=== PATIENT | female | born 1985 | race Caucasian/White ===

== ENCOUNTER 2016-10-26 20:48 | Emergency (ER) | payer OTHER ==
[2016-10-26 21:05] VITALS: BP 176/129; PULSE 130; TEMP 98.8; BMI 38.7
[2016-10-26] MEDS ORDERED: SULFAMETHOXAZOLE/TRIMETHOPRIM 800MG/160MG D.S. TABLET PO ONE (21:33)
[2016-10-26] MEDS ORDERED: IBUPROFEN 400 MG TABLET (FP) PO ONE ×2 (21:33→21:40)
--- NOTE | 2016-10-26 21:33 | PDOC ---
[id number] No Limitations - History of Present Illness Initial Comments: 10/26/16 21:49 The patient is a 31 year old female with significant past medical history of asthma who presents to the ED with 7 days of painful abscess. Patient reports she developed an abscess to the right side of the lower thoracic region that worsened. States she applied warm soaks to the area. Denies h/o of diabetes. Prior to presentation, she noted little drainage coming from the area, however the abscess is still painful. The patient denies fever, chills, cough, SOB, chest pain, and palpitations. The patient denies abdominal pain, nausea, vomiting, and diarrhea. Allergies: NKDA Social History: Occasional cigarette smoker. No alcohol or drug use reported. Past Surgical History: None reported PCP: Dr. Arnulfo Meyers <Teri Franklin - Last Filed: 10/26/16 21:49> - General History Source: Patient <Ajith Andrews - Last Filed: 10/27/16 19:35> - General Chief Complaint: Abscess Boil Stated Complaint: PAIN Time Seen by Provider: 10/26/16 21:26 Past History <Teri Franklin - Last Filed: 10/26/16 21:49> - Past Medical History Asthma: Yes Psychiatric Problems: Yes (Anxiety) - Reproductive History (#): 0 Para: 0 Cervical CA: Yes Dysfunctional Uterine Bleeding: Yes Ectopic : Yes Endometrial CA: Yes Polycystic Ovaries: Yes Therapeutic (s) & number: No Tubal Ligation: Yes Spontaneous : 0 - Psycho/Social/Smoking Cessation Hx Anxiety: No Suicidal Ideation: No Smoking Status: Yes Smoking History: Current every day smoker Have you smoked in the past 12 months: Yes Number of Cigarettes Smoked Daily: 5 Cigars Per Day: 0 Information on smoking cessation initiated: No Hx Alcohol Use: No Drug/Substance Use Hx: No Substance Use Type: None <Ajith Andrews - Last Filed: 10/27/16 19:35> - Past Medical History Allergies/Adverse Reactions: Allergies Allergy/AdvReac Type Severity Reaction Status Date / Time No Known Allergies Allergy Verified 10/26/16 21:02 Home Medications: Ambulatory Orders Ibuprofen 800 mg PO TID #30 tablet 10/26/16 Oxycodone HCl/Acetaminophen [Percocet 5-325 mg Tablet] 1 - 2 tab PO Q6H #20 tablet MDD 4 10/26/16 Sulfamethoxazole/Trimethoprim [Bactrim *Ds*] 1 tab PO BID #20 tablet 10/26/16 Review of Systems - Review of Systems Able to Perform ROS?: Yes Comments:: 10/26/16 21:49 CONSTITUTIONAL: Absent: fever, no chills, no fatigue EYES: Absent: visual changes ENT: Absent: ear pain, no sore throat CARDIOVASCULAR: Absent: chest pain, no palpitations RESPIRATORY: Absent: cough, no SOB GI: Absent: abdominal pain, no nausea, no vomiting, no constipation, no diarrhea GENITOURINARY: Absent: dysuria, no frequency, no hematuria MUSCULOSKELETAL: Absent: back pain, no arthralgia, no myalgia SKIN: +abscess to the right side of the lower thoracic region NEURO: Absent: headache <Teri Franklin - Last Filed: 10/26/16 21:49> *Physical Exam - Vital Signs Last Vital Signs Temp Pulse Resp BP Pulse Ox 98.8 F 130 H 18 176/129 98 10/26/16 21:02 10/26/16 21:02 10/26/16 21:02 10/26/16 21:02 10/26/16 21:02 - Physical Exam Comments: 10/26/16 21:50 GENERAL: Well-appearing, well-nourished. No apparent distress. HEENT: Normocephalic, atraumatic. PERRL, EOM intact. CARDIOVASCULAR: Normal S1, S2. Regular rate and rhythm. PULMONARY: Clear to auscultation bilaterally. ABDOMEN: Soft, non-distended, non-tender. EXTREMITIES: Normal ROM in all four extremities. No gross deformities. SKIN: Warm, dry. Right side lower thoracic region 6 cm abscess, erythematous, firm, nonfluctuant, no visible drainage at this time. NEUROLOGICAL: No focal neurological deficits. <Teri Franklin - Last Filed: 10/26/16 21:49> - Vital Signs Last Vital Signs Temp Pulse Resp BP Pulse Ox 98.8 F 130 H 18 176/129 98 10/26/16 21:02 10/26/16 21:02 10/26/16 21:02 10/26/16 21:02 10/26/16 21:02 <Ajith Andrews - Last Filed: 10/27/16 19:35> ED Treatment Course - Medications Given in the ED: ED Medications Discontinued Medications Generic Name Dose Route Start Last Admin Trade Name Chasity PRN Reason Stop Dose Admin Ibuprofen 800 mg 10/26/16 21:33 10/26/16 21:45 Motrin - PO 10/26/16 21:34 800 mg ONCE ONE Administration Trimethoprim/Sulfamethoxazole 1 each 10/26/16 21:33 10/26/16 21:45 Bactrim Ds - PO 10/26/16 21:34 1 each ONCE ONE Administration <Teri Franklin - Last Filed: 10/26/16 21:49> Medical Decision Making - Medical Decision Making 10/27/16 19:34 Dr. Andrews: The scribe's documentation has been prepared under my direction and personally reviewed by me in its entirery. I confirm that the note above accurately reflects all work, treatment, procedures, and medical decision making performed by me. <Ajith Andrews - Last Filed: 10/27/16 19:35> *DC/Admit/Observation/Transfer - Attestations Scribe Attestion: 10/26/16 21:50 Documentation prepared by Teri Franklin, acting as certified medical asst for Ajith Andrews MD <Teri Franklin - Last Filed: 10/26/16 21:49> - Discharge Dispostion Admit: No <Ajith Andrews - Last Filed: 10/27/16 19:35> Diagnosis at time of Disposition: Abscess - Discharge Dispostion Disposition: HOME Condition at time of disposition: Stable - Prescriptions Prescriptions: Sulfamethoxazole/Trimethoprim [Bactrim *Ds*] 1 tab PO BID #20 tablet Ibuprofen 800 mg PO TID #30 tablet Oxycodone HCl/Acetaminophen [Percocet 5-325 mg Tablet] 1 - 2 tab PO Q6H #20 tablet MDD 4 - Referrals Referrals: Arnulfo Meyers [Primary Care Provider] - - Patient Instructions Printed Discharge Instructions: DI for Skin Abscess Additional Instructions: continue with warm soaks. Take medication as directed. Return when abscess is softer and ready to drain.
[2016-10-26] MEDS ORDERED: SULFAMETHOXAZOLE/TRIMETHOPRIM 800MG/160MG D.S. TABLET ONE (21:40)
== END 2016-10-26 22:00 | disposition home or self-care (01) ==
LOC: JER 20:48
DX: L02.212 Cutaneous abscess of back [any part, except buttock and flank] (principal)
CPT/HCPCS: 99281-25

== ENCOUNTER 2016-10-28 21:57 | Emergency (ER) | payer OTHER ==
[2016-10-28 22:13] VITALS: BP 160/112; PULSE 67; TEMP 99.5; BMI 38.7
--- NOTE | 2016-10-28 22:22 | PDOC ---
History of Present Illness - General Chief Complaint: Abscess Boil Stated Complaint: CYST Time Seen by Provider: 10/28/16 22:01 - History of Present Illness Initial Comments: This otherwise healthy 31-year-old woman presents with progressive pain/ swelling in area of right-sided back abscess. Patient was seen at [facility] 2 days ago with one-week history of swelling and pain in the area. She was started on Bactrim DS BID which she has taken since then. She states that pain and swelling has worsened without significant relief and inflammation. No history of fevers/chills, nausea/vomiting. No previous history of abscesses or resistant organism colonization/infection. No known history of immunocompromise. On no medications No known allergies Past History - Past Medical History Allergies/Adverse Reactions: Allergies Allergy/AdvReac Type Severity Reaction Status Date / Time No Known Allergies Allergy Verified 10/26/16 21:02 Home Medications: Ambulatory Orders Ibuprofen 800 mg PO TID #30 tablet 10/26/16 Sulfamethoxazole/Trimethoprim [Bactrim *Ds*] 1 tab PO BID #20 tablet 10/26/16 Clindamycin [Cleocin -] 600 mg PO Q6H #56 capsule 10/29/16 Asthma: Yes Psychiatric Problems: Yes (Anxiety) - Reproductive History (#): 0 Para: 0 Cervical CA: Yes Dysfunctional Uterine Bleeding: Yes Ectopic : Yes Endometrial CA: Yes Polycystic Ovaries: Yes Therapeutic (s) & number: No Tubal Ligation: Yes Spontaneous : 0 - Psycho/Social/Smoking Cessation Hx Anxiety: No Suicidal Ideation: No Smoking Status: Yes Smoking History: Current every day smoker Have you smoked in the past 12 months: Yes Number of Cigarettes Smoked Daily: 5 Cigars Per Day: 0 Information on smoking cessation initiated: Yes 'Breaking Loose' booklet given: 10/28/16 Hx Alcohol Use: No Drug/Substance Use Hx: No Substance Use Type: None Review of Systems - Review of Systems Able to Perform ROS?: Yes Comments:: 12 point review of systems is negative except for what is noted in the history of present illness *Physical Exam - Vital Signs Last Vital Signs Temp Pulse Resp BP Pulse Ox 99.5 F 67 16 160/112 95 10/28/16 22:03 10/28/16 22:03 10/28/16 22:03 10/28/16 22:03 10/28/16 22:03 - Physical Exam Comments: GENERAL: Awake, alert, and fully oriented, in no acute distress HEAD: No signs of trauma EYES: PERRLA, EOMI, sclera anicteric, conjunctiva clear ENT: Auricles normal inspection, hearing grossly normal, nares patent, oropharynx clear without exudates. Moist mucosa NECK: Normal ROM, supple, no lymphadenopathy, JVD, or masses LUNGS: Breath sounds clear and equal. No wheezes, and no crackles HEART: Regular rate and rhythm, normal S1 and S2, no murmurs, rubs or gallops noted BACK: 8 cm oval, erythematous, generally indurated, tender mass right mid lower thoracic back Central pore with small amount of purulent discharge surrounded by 2 cm area of fluctuance; faintly erythematous 15 cm nontender, nonfluctuant area extending to right flank 20 cm by 6 cm faintly erythematous, nonedematous, nonfluctuant, nontender area extending outward from mid sacral area ABDOMEN: Soft, nontender, normoactive bowel sounds. No guarding, no rebound. No masses EXTREMITIES: Normal range of motion, no edema. No clubbing or cyanosis. No cords, erythema, or tenderness NEUROLOGICAL: Cranial nerves II through XII grossly intact. Normal speech, normal gait Procedures - Incision and Drainage I&D Site: Right: Other (lower thoracic back) Betadine cleansed: No (Hibiclens) Anesthesia: 1% Lidocaine Volume(ml): 3 Blade Size: 11 Attempts: 1 Iodinated Packin in Plain Packing: Yes Complications: none Dressing: Yes (dry,sterile gauze) Progress: Area of abscess cleansed with Hibiclens/ethanol solution and sterilely draped. 3 mL of 1% lidocaine infiltrated into the area for local anesthesia. 2.5 cm full-thickness incision made with #11 blade. Copious purulent discharge was expressed from the wound and sent for culture and sensitivity. Loculations within the cavity broken up bluntly and wound irrigated with 50 mL of sterile normal saline. 1 inch plain packing placed into the wound. Sterile dry gauze placed. Patient tolerated procedure well ED Treatment Course - LABORATORY CBC & Chemistry Diagram: 10/28/16 23:15 10/28/16 23:15 Medical Decision Making - Medical Decision Making This 31-year-old woman with no significant past medical history no previous history of abscesses/cellulitis presents with abscess and cellulitis of the right lower thoracic back area. Patient has been treated for it 2 days with Bactrim DS twice a day without apparent improvement. No fever noted but patient has progressive pain and swelling in the area. Exam as noted: Patient has tender indurated area with central fluctuance. Of note, there are faintly erythematous areas extending to the right flank and also distant from the abscess, faintly erythematous, non-tender or indurated area of the sacral region. Procedure as noted above for incision and drainage of the abscess. Copious purulent drainage; sample sent for culture and sensitivity. vancomycin 1 g IV given Because of the presence of cellulitis and progressive nature of the infection, CBC/chemistry profile was obtained.PGU/UA also obtained Laboratory evaluation notable for white blood cell count of 23,200 Admission for IV antibiotics warranted given the leukocytosis, extended areas of cellulitis and progressive nature of the infection. Patient refused admission, signing out AGAINST MEDICAL ADVICE Patient advised to stop Bactrim and begin clindamycin 600 mg 4 times a day. Prescription will be sent to her pharmacy. She should return to the emergency room if she has fevers/worsening pain/worsening area of redness. She should follow-up with her doctor or be seen here for wound check within the next 3 days. Packing should be removed in 48 hours. *DC/Admit/Observation/Transfer Diagnosis at time of Disposition: Cellulitis and abscess of trunk - Discharge Dispostion Disposition: AGAINST MEDICAL ADVICE Condition at time of disposition: Stable - Prescriptions Prescriptions: Clindamycin [Cleocin -] 600 mg PO Q6H #56 capsule - Referrals Referrals: STAFF,NOT ON [Primary Care Provider] - - Patient Instructions Printed Discharge Instructions: DI for Incision and Drainage of a Skin Abscess , DI for Cellulitis -- Adult Additional Instructions: Take clindamycin as prescribed Packing should be removed in 48 hours then Band-Aid as needed See your doctor or return here for a wound check on Tuesday, November 01 Return to ER if you have high fever/more severe pain/increase in redness
[2016-10-28 22:53] LABS: URINE APPEARANCE Clear; URINE BILIRUBIN Negative (NEGATIVE); URINE BLOOD Trace-lysed (NEGATIVE); URINE GLUCOSE (UA) Negative (NEGATIVE); URINE KETONE Trace (NEGATIVE); URINE LEUK ESTERASE Negative (NEGATIVE); URINE NITRITE Negative (NEGATIVE); URINE UROBILINOGEN 2.0 E.U/dl (0.2-1.0)
[2016-10-28 23:00] LABS: URINE PROTEIN 2+ (NEGATIVE)
[2016-10-28 23:01] LABS: URINE BACTERIA FEW /hpf (NEGATIVE); URINE RBC 0-2 /hpf (0-3)
[2016-10-28] MEDS ORDERED: VANCOMYCIN 1,000 MG in DEXTROSE 5%-WATER - 250 ML IVPB ONE (23:07)
[2016-10-28] MEDS ORDERED: VANCOMYCIN 1,000 MG VIAL (RESTRICTED TO ID ONLY) ONE (23:20)
[2016-10-28 23:26] LABS: MCH 29.9 pg (25.7-33.7); MCHC 35.4 g/dl (32.0-36.0); MEAN CELL VOLUME 84.6 fl (80-96); MEAN PLT VOLUME 8.9 fl (7.5-11.1); PLATELET COUNT 264 K/MM3 (134-434); RDW 11.3 % (11.6-15.6); WHITE BLOOD COUNT 23.2 K/mm3 (4.0-10.8)
[2016-10-28 23:41] LABS: ALBUMIN 3.8 g/dl (3.5-5.0); ALK PHOS 59 U/L (32-92); ANION GAP 9 (8-16); BILIRUBIN,TOTAL 0.5 mg/dl (0.2-1.0); CALCIUM 8.7 mg/dl (8.4-10.2); CO2 25 mmol/L (22-28); CREATININE 0.7 mg/dl (0.6-1.3); GLUCOSE,RANDOM 165 mg/dl (74-106); SGOT/AST 18 U/L (10-42); SGPT/ALT 20 U/L (10-40); TOT PROT 6.7 g/dl (6.4-8.3)
[2016-10-28 23:45] LABS: URINE COLOR YELLOW
== END 2016-10-29 00:59 | disposition left against medical advice (07) ==
LOC: FER 21:57
PROC: 0H96XZZ Drainage of Back Skin, External Approach (ICD-10-PCS; principal; 2016-10-28)
PROC: 3E02329 Introduction of Other Anti-infective into Muscle, Percutaneous Approach (ICD-10-PCS; 2016-10-28)
DX: L02.219 Cutaneous abscess of trunk, unspecified (principal); L03.319 Cellulitis of trunk, unspecified; J45.909 Unspecified asthma, uncomplicated; F17.210 Nicotine dependence, cigarettes, uncomplicated; F41.9 Anxiety disorder, unspecified
CPT/HCPCS: 36415; 80053; 81003; 81015; 84703; 85025; 87070; 87186; 87205; 99282-25

== ENCOUNTER 2016-10-30 17:12 | Emergency (ER) | payer OTHER ==
--- NOTE | 2016-10-30 17:14 | PDOC ---
Attending Attestation - Resident Resident Name: LopezRodo - ED Attending Attestation I have performed the following: I have examined & evaluated the patient, The case was reviewed & discussed with the resident, I agree w/resident's findings & plan, Exceptions are as noted - HPI HPI: 10/30/16 17:13 The pt is a 31 year old female who presents to the emergency department for an evaluation of an abscess that was incised, drained and packed on 08/30. At that time, hospitalization was recommended but she refused admission against medical advice. She has been compliant with Clindamycin. She denies fever, chills. 10/30/16 17:15 10/30/16 17:16 - Physicial Exam PE: 10/30/16 17:16 She is well appearing and in no acute distress Grain stain of wound culture was MRSA 10/30/16 17:37 10/30/16 17:41 - Medical Decision Making 10/30/16 17:17 She is well appearing and in no acute distress From prior documentation and per her friend, the area is significantly better There is still some erythema around the incision site There is no purulence or fluctuence She has no evidence of sepsis or deep tissuer infection 10/30/16 17:41 Clinical impression: Healing abscess, s/p incision and drainage Resolving cellulitis I discussed the physical exam findings and final diagnoses with the patient. I answered all of the patient's questions. The patient was satisfied with the care received and felt comfortable with the discharge plan and treatment plan. The patient will call their primary care physician within 24 hours to arrange follow-up and will return to the Emergency Department with any new, persistent or worsening symptoms.
[2016-10-30 17:22] VITALS: BP 116/88; PULSE 100; TEMP 98.7; BMI 37.3
--- NOTE | 2016-10-30 17:30 | PDOC ---
History of Present Illness - General Chief Complaint: Revisit,Wound Recheck Stated Complaint: WOUND CHECK Time Seen by Provider: 10/30/16 17:13 History Source: Patient Exam Limitations: No Limitations - History of Present Illness Initial Comments: 31 yo F with h/o spinal abscess s/p drainage and packing presented to the ED for packing removal. She said she was seen at [facility] ED with spinal abscess and received vancomycin 1 g IV but insisted on sign out AMA and taking oral antibiotics as outpatient. Patient has been on clindamycin 600mg Q6H since and denies fever and chills. Past History - Past Medical History Allergies/Adverse Reactions: Allergies Allergy/AdvReac Type Severity Reaction Status Date / Time No Known Allergies Allergy Verified 10/30/16 17:13 Home Medications: Ambulatory Orders Ibuprofen 800 mg PO TID #30 tablet 10/26/16 Clindamycin [Cleocin -] 600 mg PO Q6H #56 capsule 10/29/16 Asthma: Yes Psychiatric Problems: Yes (Anxiety) - Reproductive History (#): 0 Para: 0 Cervical CA: Yes Dysfunctional Uterine Bleeding: Yes Ectopic : Yes Endometrial CA: Yes Polycystic Ovaries: Yes Therapeutic (s) & number: No Tubal Ligation: Yes Spontaneous : 0 - Psycho/Social/Smoking Cessation Hx Anxiety: No Suicidal Ideation: No Smoking Status: Yes Smoking History: Current every day smoker Have you smoked in the past 12 months: Yes Number of Cigarettes Smoked Daily: 5 Cigars Per Day: 0 Information on smoking cessation initiated: Yes 'Breaking Loose' booklet given: 10/28/16 Hx Alcohol Use: No (DENIES) Drug/Substance Use Hx: No (DENIES) Substance Use Type: None Review of Systems - Review of Systems Constitutional: No: Chills, Fever Respiratory: No: Cough, Shortness of Breath Cardiac (ROS): No: Chest Pain Integumentary: Yes: Lesions, Rash *Physical Exam - Vital Signs Last Vital Signs Temp Pulse Resp BP Pulse Ox 98.7 F 100 H 18 116/88 98 10/30/16 17:15 10/30/16 17:15 10/30/16 17:15 10/30/16 17:15 10/30/16 17:15 - Physical Exam General Appearance: No: Apparent Distress Respiratory/Chest: positive: Lungs Clear, Normal Breath Sounds Cardiovascular: positive: Regular Rhythm, Regular Rate, S1, S2. negative: Murmur Integumentary: positive: Erythema, Other (2 cm open wound without sign of drainage. no fluctuance.) Medical Decision Making - Medical Decision Making 10/30/16 17:42 Packing removed. Wound looks better compare to prior admission. Educated the patient on wound care. Will discharge the patient. *DC/Admit/Observation/Transfer Diagnosis at time of Disposition: Abscess - Discharge Dispostion Disposition: HOME Condition at time of disposition: Good Admit: No - Patient Instructions Printed Discharge Instructions: How to Care for a Surgical Wound Additional Instructions: Please use normal bathtub water to clean the wound, keep lint out of the wound and use aquafor for quicker wound healing. If you develop fever, chills, purulent discharge from the abscess, do return to the ER for further wound care.
== END 2016-10-30 17:50 | disposition home or self-care (01) ==
LOC: FER 17:12
DX: Z48.01 Encounter for change or removal of surgical wound dressing (principal); F17.210 Nicotine dependence, cigarettes, uncomplicated; J45.909 Unspecified asthma, uncomplicated; F41.9 Anxiety disorder, unspecified
CPT/HCPCS: 99281-25

== ENCOUNTER 2017-02-22 17:53 | Emergency (ER) | payer OTHER ==
--- NOTE | 2017-02-22 18:00 | PDOC ---
History of Present Illness <Gaurav Rae - Last Filed: 02/22/17 18:54> - General History Source: Patient Exam Limitations: No Limitations - History of Present Illness Initial Comments: 02/22/17 18:44 31 y/o F with no significant PMHx presents to the ED with multiple abscesses. Patient reports similar abscesses before, but denies having multiple at one time. She reports that she drained the right forearm, left axilla, and LUQ abscesses. She reports associated pain at all sites. She presented to the ED for an abscess in October with similar symptoms. She denies shaving or waxing the areas where the abscesses formed. She denies fever, chills. SHx: current smoker <Mary De Jesus - Last Filed: 02/22/17 19:09> <Shreyas Poole - Last Filed: 02/24/17 12:21> - General Chief Complaint: Wound Stated Complaint: ABCESS Time Seen by Provider: 02/22/17 17:55 Past History - Past Medical History Asthma: Yes Psychiatric Problems: Yes (Anxiety) - Reproductive History (#): 0 Para: 0 Cervical CA: Yes Dysfunctional Uterine Bleeding: Yes Ectopic : Yes Endometrial CA: Yes Polycystic Ovaries: Yes Therapeutic (s) & number: No Tubal Ligation: Yes Spontaneous : 0 - Psycho/Social/Smoking Cessation Hx Anxiety: No Suicidal Ideation: No Smoking Status: Yes Smoking History: Current every day smoker Have you smoked in the past 12 months: Yes Number of Cigarettes Smoked Daily: 5 Cigars Per Day: 0 'Breaking Loose' booklet given: 10/28/16 Hx Alcohol Use: No (DENIES) Drug/Substance Use Hx: No (DENIES) Substance Use Type: None <Gaurav Rae - Last Filed: 02/22/17 18:54> <Mary De Jesus - Last Filed: 02/22/17 19:09> <Shreyas Poole - Last Filed: 02/24/17 12:21> - Past Medical History Allergies/Adverse Reactions: Allergies Allergy/AdvReac Type Severity Reaction Status Date / Time No Known Allergies Allergy Verified 02/22/17 17:54 Home Medications: Ambulatory Orders Oxycodone HCl/Acetaminophen [Percocet 5-325 mg Tablet] 1 - 2 tab PO TID PRN #10 tab MDD 6 tabs 02/22/17 Sulfamethoxazole/Trimethoprim [Bactrim DS -] 2 tab PO BID #40 tablet 02/22/17 Review of Systems - Review of Systems Constitutional: No: Chills, Fever Integumentary: Yes: See HPI All Other Systems: Reviewed and Negative <Gaurav Rae - Last Filed: 02/22/17 18:54> *Physical Exam - Vital Signs Last Vital Signs Temp Pulse Resp BP Pulse Ox 98.3 F 97 H 20 151/91 99 02/22/17 17:53 02/22/17 17:53 02/22/17 17:53 02/22/17 17:53 02/22/17 17:53 - Physical Exam Comments: 02/22/17 18:44 GENERAL: The patient is awake, alert, and fully oriented, in no acute distress. HEAD: Normal with no signs of trauma. EYES: Pupils equal, round and reactive to light, extraocular movements intact, sclera anicteric, conjunctiva clear. LUNGS: Breath sounds equal, clear to auscultation bilaterally. No wheeze/ crackles. HEART: Regular rate at 72 bpm and rhythm, normal S1 and S2 without murmur or rub. EXTREMITIES: Normal range of motion, no edema. NEUROLOGICAL: Normal speech, normal gait. PSYCH: Normal mood, normal affect. SKIN: 3 cm abscess on right forearm with central raised induration but no palpable fluctuance. 2 cm area of induration, with ~3 cm of erythema, actively draining purulence and blood on LUQ. 5 mm of resolving abscess, no induration, no fluctuance at left axilla. 5 mm of resolving abscesses, no induration, no fluctuance x 3 in left shoulder area. Right mid abdomen has 5 cm area of induration with small 5 mm of fluctuance centrally, no active drainage, 12 cm area of erythema, no evidence of deep abdominal wall or intraperitoneal expansion. Right suprapubic has 4 cm area of induration without fluctuance, no drainage, 5 cm of cellulitis. <Mary De Jesus - Last Filed: 02/22/17 19:09> - Vital Signs Last Vital Signs Temp Pulse Resp BP Pulse Ox 98.3 F 97 H 20 151/91 99 02/22/17 17:53 02/22/17 17:53 02/22/17 17:53 02/22/17 17:53 02/22/17 17:53 <Shreyas Poole - Last Filed: 02/24/17 12:21> ED Treatment Course - ADDITIONAL ORDERS Additional order review: 02/22/17 18:29 Gram Stain - Final Abscess - Medications Given in the ED: ED Medications Discontinued Medications Generic Name Dose Route Start Last Admin Trade Name Chasity PRN Reason Stop Dose Admin Oxycodone/Acetaminophen 1 combo 02/22/17 19:06 02/22/17 19:09 Percocet 5/325 - PO 02/22/17 19:07 Not Given ONCE ONE Trimethoprim/Sulfamethoxazole 2 each 02/22/17 18:27 02/22/17 19:08 Bactrim Ds - PO 02/22/17 18:28 2 each ONCE ONE Administration <Shreyas Poole - Last Filed: 02/24/17 12:21> Medical Decision Making - Medical Decision Making 02/22/17 18:56 31-year-old female with 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 Reports exposure to an individual that had MRSA, otherwise no travel or known contacts, denies any fevers or chills or systemic symptoms. Denies any IV drug use. Afebrile. Morbidly obese, well-appearing Exam as noted with scattered cellulitis/induration/abscess. Fluctuance noted in the left upper quadrant which is spontaneously draining, and in the right lower quadrant abscesses. There is late stage induration without fluctuance in the right forearm and suprapubic region, there is early cellulitis in the area of the left shoulder/axilla. PROCEDURE NOTE INCISION AND DRAINAGE PROCEDURE: Right middle abdominal wall abscess The skin was prepped with Betadine solution. 2% lidocaine was injected subcutaneously for local anesthesia. Incision of the center of the abscess was performed with a #11 blade. Purulent material was expressed from the incision. A curved clamp was used to break up loculations within the abscess. Further purulent material was expressed from the incision. Gauze packing was placed within the wound. A clean, dry, sterile dressing was placed. Patient was advised regarding wound care and followup for packing removal. INCISION AND DRAINAGE PROCEDURE: Left upper quadrant abdominal wall abscess The skin was prepped with Betadine solution. 2% lidocaine was injected subcutaneously for local anesthesia. Incision of the center of the abscess was performed with a #11 blade. Mostly sanguinous material was expressed from the incision, some residual purulence. The abscess was very superficial so no breakup of loculations or gauze packing was indicated. A wound culture was sent. A clean, dry, sterile dressing was placed. Patient was advised regarding wound care and followup for packing removal. Given patient is immunocompetent without evidence of sepsis or bacteremia, we' ll trial with a course of Bactrim based on sensitivities from prior MRSA culture. First dose given in ED, patient should return in 48-72 hours for packing changes and wound checks of other abscesses. Strict return criteria regarding expansion of the cellulitis and need for IV antibiotics, understands and will comply. <Gaurav Rae - Last Filed: 02/22/17 18:54> - Medical Decision Making 02/24/17 12:20 [email or web address] Preliminary Report, MRSA, Covered with Bactrim DS at initial encounter. <Shreyas Poole - Last Filed: 02/24/17 12:21> *DC/Admit/Observation/Transfer <Gaurav Rae - Last Filed: 02/22/17 18:54> - Attestations Scribe Attestion: 02/22/17 18:45 Documentation prepared by Mary De Jesus, acting as certified medical technician for Gaurav Rea MD. <Mary De Jesus - Last Filed: 02/22/17 19:09> <Shreyas Poole - Last Filed: 02/24/17 12:21> Diagnosis at time of Disposition: Abscess - Discharge Dispostion Disposition: HOME Condition at time of disposition: Improved - Prescriptions Prescriptions: Sulfamethoxazole/Trimethoprim [Bactrim DS -] 2 tab PO BID #40 tablet Oxycodone HCl/Acetaminophen [Percocet 5-325 mg Tablet] 1 - 2 tab PO TID PRN #10 tab MDD 6 tabs PRN Reason: Pain - Patient Instructions Printed Discharge Instructions: DI for Methicillin-Resistant Staph Infection ( MRSA), DI for Skin Abscess Additional Instructions: You have several infections in the skin, some of them are abscesses which were drained here. In the past, you were diagnosed with MRSA, and this is likely the cause again. Maintain the packing and dressing for the R abdominal lesion. No packing was needed for the Left abdominal lesion. Warm soaks to the R forearm and lower abdominal lesions. Take ibuprofen 800mg every 8 hours as needed for moderate pain. Take percocet as prescribed as needed for severe pain. Take Bactrim as prescribed as antibiotic for 10 days. REturn to the ER on Tuesday morning for wound check and packing change. Return sooner for any new or concerning symptoms, including increasing redness, fever/ chills, intolerable pain, severe swelling or discoloration.
[2017-02-22] MEDS ORDERED: SULFAMETHOXAZOLE/TRIMETHOPRIM 800MG/160MG D.S. TABLET PO ONE (18:27)
[2017-02-22 18:29] VITALS: BP 151/91; PULSE 97; TEMP 98.3; BMI 38.4
[2017-02-22] MEDS ORDERED: SULFAMETHOXAZOLE/TRIMETHOPRIM 800MG/160MG D.S. TABLET ONE (19:03)
== END 2017-02-22 19:12 | disposition home or self-care (01) ==
LOC: FER 17:53
PROC: 0H97XZZ Drainage of Abdomen Skin, External Approach (ICD-10-PCS; principal; 2017-02-22)
DX: L02.211 Cutaneous abscess of abdominal wall (principal); F17.210 Nicotine dependence, cigarettes, uncomplicated
CPT/HCPCS: 10060; 87070; 87186; 87205; 99281-25

== ENCOUNTER 2017-02-24 21:13 | Emergency (ER) | payer OTHER ==
[2017-02-24 21:31] VITALS: BP 151/101; PULSE 102; TEMP 98.5; BMI 38.4
--- NOTE | 2017-02-24 21:38 | PDOC ---
History of Present Illness - History of Present Illness Initial Comments: 02/24/17 21:40 The patient is a 31 year old female with no significant PMHx who returns to the ED 2 days s/p being discharged after I&D of two abscesses on her abdomen with complaint of two new painful She localizes her new abscesses to one on her right forearm and one to her central lower abdomen despite starting Bactrim yesterday. She reports her new abscesses are painful and warm, but denies drainage from either of them. She reports the new abscess on her right forearm does appear to be getting better even though it is painful. She states the abscess on her lower abdomen hurts when it rubs against her pants and has it covered with gauze to alleviate some of the pressure from her pants. She denies fever, nausea, or vomiting. She states she also feels she is developing other abscesses on her abdomen aside from the ones that were recently drained. She denies chest pain, shortness of breath, headache and dizziness. She denies chills, diarrhea and constipation. She denies dysuria, frequency, urgency and hematuria. Allergies: NKDA <Ching Cates - Last Filed: 02/24/17 21:49> <Yoko Gardner - Last Filed: 02/24/17 22:04> - General Chief Complaint: Revisit,Wound Recheck Stated Complaint: PACKING REMOVAL Time Seen by Provider: 02/24/17 21:19 Past History <Ching Cates - Last Filed: 02/24/17 21:49> - Past Medical History Asthma: Yes Psychiatric Problems: Yes (Anxiety) - Reproductive History (#): 0 Para: 0 Cervical CA: Yes Dysfunctional Uterine Bleeding: Yes Ectopic : Yes Endometrial CA: Yes Polycystic Ovaries: Yes Therapeutic (s) & number: No Tubal Ligation: Yes Spontaneous : 0 - Psycho/Social/Smoking Cessation Hx Anxiety: No Suicidal Ideation: No Smoking Status: Yes Smoking History: Current every day smoker Have you smoked in the past 12 months: Yes Number of Cigarettes Smoked Daily: 5 Cigars Per Day: 0 'Breaking Loose' booklet given: 10/28/16 Hx Alcohol Use: No (DENIES) Drug/Substance Use Hx: No (DENIES) Substance Use Type: None <Yoko Gardner - Last Filed: 02/24/17 22:04> - Past Medical History Allergies/Adverse Reactions: Allergies Allergy/AdvReac Type Severity Reaction Status Date / Time No Known Allergies Allergy Verified 02/22/17 17:54 Home Medications: Ambulatory Orders Oxycodone HCl/Acetaminophen [Percocet 5-325 mg Tablet] 1 - 2 tab PO TID PRN #10 tab MDD 6 tabs 02/22/17 Sulfamethoxazole/Trimethoprim [Bactrim DS -] 2 tab PO BID #40 tablet 02/22/17 Review of Systems - Review of Systems Able to Perform ROS?: Yes Comments:: 02/24/17 21:40 GENERAL/CONSTITUTIONAL: No fever or chills. No weakness. HEAD, EYES, EARS, NOSE AND THROAT: No change in vision. No ear pain or discharge. No sore throat. CARDIOVASCULAR: No chest pain or shortness of breath. RESPIRATORY: No cough, wheezing, or hemoptysis. GASTROINTESTINAL: No nausea, vomiting, diarrhea or constipation. GENITOURINARY: No dysuria, frequency, or change in urination. MUSCULOSKELETAL: No joint or muscle swelling or pain. No neck or back pain. SKIN: (+) painful abscesses to forearm and lower abdomen. NEUROLOGIC: No headache, vertigo, loss of consciousness, or change in strength/ sensation. ENDOCRINE: No increased thirst. No abnormal weight change. HEMATOLOGIC/LYMPHATIC: No anemia, easy bleeding, or history of blood clots. ALLERGIC/IMMUNOLOGIC: No hives or skin allergy. <Ching Cates - Last Filed: 02/24/17 21:49> *Physical Exam - Vital Signs Last Vital Signs Temp Pulse Resp BP Pulse Ox 98.5 F 102 H 16 151/101 99 02/24/17 21:19 02/24/17 21:19 02/24/17 21:19 02/24/17 21:19 02/24/17 21:19 - Physical Exam Comments: 02/24/17 21:40 GENERAL: Awake, alert, and fully oriented, in no acute distress HEAD: No signs of trauma EXTREMITIES: (+) 2cm abscess on right forearm. Normal range of motion, no edema. No clubbing or cyanosis. No cords NEUROLOGICAL: Cranial nerves II through XII grossly intact. Normal speech, normal gait SKIN: (+) There is a 2cm area of induration redness and tenderness on the right forearm, a nontender/nonindurated/nondraining abscess on left upper quadrant without packing, a 1cm area of redness and induration with packing removed from RUQ abscess with minimal purulent drainage, 1cm area of induration and tenderness without fluctuance or drainage to suprapubic region. <Ching Cates - Last Filed: 02/24/17 21:49> Medical Decision Making - Medical Decision Making 02/24/17 22:01 Pt presents to the ED for packing removal and wound check of multiple abscesses I and D'd on 02/22. Patient is afebrile and has multiple areas of redness and induration that she reports are persistent but seem to be improving stince starting on bactrim. Packing removed. Patient was concerned about two spots that she felt might require drainage. I examined them with ultrasound and saw no fluid pocket. Patient instructed to continue bactrim and to return to the ED for fever or worsening redness. I also instructed her to return if she does not experience significant improvement within two days. <Yoko Gardner - Last Filed: 02/24/17 22:04> *DC/Admit/Observation/Transfer <Ching Cates - Last Filed: 02/24/17 21:49> - Discharge Dispostion Admit: No <Yoko Gardner - Last Filed: 02/24/17 22:04> Diagnosis at time of Disposition: Abscess - Discharge Dispostion Disposition: HOME Condition at time of disposition: Stable - Patient Instructions Printed Discharge Instructions: DI for Skin Abscess Additional Instructions: Return to the ED for fever, nausea and vomiting, spreading redness or pain. Use warm compresses on the affected area of your arm and belly. Return to the ED if the redness has not improved after two days of antibiotics. Follow up with your primary care doctor. Continue to take the bactrim until it is all gone.
== END 2017-02-24 21:55 | disposition home or self-care (01) ==
LOC: FER 21:13
DX: Z48.01 Encounter for change or removal of surgical wound dressing (principal)
CPT/HCPCS: 99281-25

== ENCOUNTER 2017-09-23 18:06 | Emergency (ER) | payer SELFPAY ==
[2017-09-23 18:23] VITALS: BP 151/94; PULSE 110; TEMP 98.3; BMI 39.1
[2017-09-23] MEDS ORDERED: NAPROXEN 500 MG TABLET (FP) PO ONE (18:50)
--- NOTE | 2017-09-23 18:52 | PDOC ---
History of Present Illness - General Chief Complaint: Pain Stated Complaint: RIGHT SIDE OF CHEST PAIN WITH RESPIRATION Time Seen by Provider: 09/23/17 18:13 History Source: Patient Exam Limitations: No Limitations Past History - Past Medical History Allergies/Adverse Reactions: Allergies Allergy/AdvReac Type Severity Reaction Status Date / Time No Known Allergies Allergy Verified 09/23/17 18:07 Home Medications: Ambulatory Orders Cyclobenzaprine HCl [Flexeril -] 10 mg PO TID PRN #10 tablet 09/23/17 Naproxen 500 mg PO BID PRN #15 tablet 09/23/17 Asthma: Yes COPD: No Psychiatric Problems: Yes (Anxiety) - Reproductive History (#): 0 Para: 0 Cervical CA: Yes Dysfunctional Uterine Bleeding: Yes Ectopic : Yes Endometrial CA: Yes Polycystic Ovaries: Yes Therapeutic (s) & number: No Tubal Ligation: Yes Spontaneous : 0 - Suicide/Smoking/Psychosocial Hx Smoking Status: Yes Smoking History: Current every day smoker Have you smoked in the past 12 months: Yes Number of Cigarettes Smoked Daily: 5 Cigars Per Day: 0 Information on smoking cessation initiated: Yes 'Breaking Loose' booklet given: 10/28/16 Hx Alcohol Use: Yes (SOCIAL) Drug/Substance Use Hx: No Substance Use Type: Alcohol Review of Systems - Review of Systems Able to Perform ROS?: Yes Comments:: 09/24/17 08:39 GENERAL/CONSTITUTIONAL: No fever, weakness. HEAD, EYES, EARS, NOSE AND THROAT: No change in vision. No ear pain or discharge. No sore throat. CARDIOVASCULAR: No chest pain or shortness of breath. BACK: Right upper back pain RESPIRATORY: No cough, wheezing, or hemoptysis. GASTROINTESTINAL: No abdominal pain, nausea, vomiting, diarrhea, or decreased PO intolerance. GENITOURINARY: No dysuria, frequency, or change in urination. MUSCULOSKELETAL: No joint or muscle swelling or pain. No neck or back pain. SKIN: No rash NEUROLOGIC: No headache, vertigo, loss of consciousness, or change in strength/ sensation. ENDOCRINE: No increased thirst. No abnormal weight change. HEMATOLOGIC/LYMPHATIC: No anemia, easy bleeding, or history of blood clots. ALLERGIC/IMMUNOLOGIC: No hives or skin allergy. *Physical Exam - Vital Signs Last Vital Signs Temp Pulse Resp BP Pulse Ox 98.3 F 110 H 20 151/94 100 09/23/17 18:07 09/23/17 18:07 09/23/17 18:07 09/23/17 18:07 09/23/17 18:07 - Physical Exam Comments: 09/24/17 08:39 GENERAL: Awake, alert, and fully oriented, in no acute distress. HEAD: No signs of trauma EYES: PERRLA, EOMI, sclera anicteric, conjunctiva clear ENT: Auricles normal inspection, hearing grossly normal, nares patent NECK: Normal ROM, supple, no lymphadenopathy, JVD, or masses LUNGS: Breath sounds equal, clear to auscultation bilaterally. No wheezes, and no crackles HEART: Regular rate and rhythm, normal S1 and S2, no murmurs, rubs or gallops BACK: Reproducible right sided back pain and spasm radiating to right chest. EXTREMITIES: Normal range of motion, no edema. No clubbing or cyanosis. No cords, erythema, or tenderness NEUROLOGICAL: Cranial nerves II through XII grossly intact. Normal speech, normal gait SKIN: Warm, Dry, normal turgor, no rashes or lesions noted. Medical Decision Making - Medical Decision Making 09/23/17 18:52 A portion of this note was documented by scribe services under my direction. I have reviewed the details of the note, within reason, and agree with the documentation with the following case summary and management plan written by me. Patient treated in the ED. Nursing notes are reviewed and incorporated into the medical decision-making. Vital signs reviewed. Peripheral IV access obtained by the nurse, laboratory studies are drawn and sent, reviewed and interpreted by myself. 32-year-old female with history of obesity presents with reproducible right upper back pain radiating to the right side chest. Patient reports that she woke up with the pain. Denies shortness of breath or cough or fevers. States that turning and twisting of the upper extremity as well as palpation reproduces the pain. Denies fevers or chills. The patient has muscle spasm. We'll treat with NSAIDs and muscle relaxants. I have no concerns for acute coronary syndrome or pulmonary embolism or other acute cardiac pulmonary disease at this time. She will follow with her primary care physician. I discussed the physical exam findings, ancillary test results and final diagnoses with the patient. I answered all of the patient's questions. The patient was satisfied with the care received and felt comfortable with the discharge plan and treatment plan. The patient will call their primary care physician within 24 hours to arrange follow-up and will return to the Emergency Department with any new, persistant or worsening symptoms. *DC/Admit/Observation/Transfer Diagnosis at time of Disposition: Back pain Qualifiers: Back pain location: back pain in unspecified location Chronicity: acute Back pain laterality: right Qualified Code(s): M54.9 - Dorsalgia, unspecified - Discharge Dispostion Disposition: HOME Condition at time of disposition: Stable Admit: No - Prescriptions Prescriptions: Cyclobenzaprine HCl [Flexeril -] 10 mg PO TID PRN #10 tablet PRN Reason: Muscle Relaxant Naproxen 500 mg PO BID PRN #15 tablet PRN Reason: Pain - Referrals - Patient Instructions Printed Discharge Instructions: Back Pain (Alternative Therapy), DI for Thoracic Back Pain Additional Instructions: Take 500 mg naproxen every 12 hours as needed for pain. For muscle relaxant, you may take a tablet of flexeril every 8 hours as needed ( but please be cautious, as this may make you drowsy). Drink plenty of fluids and rest. It will take several days before your symptoms improve. - Post Discharge Activity Forms/Work/School Notes: Back to Work
[2017-09-23] MEDS ORDERED: NAPROXEN 500 MG TABLET (FP) ONE (18:53)
== END 2017-09-23 19:02 | disposition home or self-care (01) ==
LOC: FER 18:06
DX: M54.9 Dorsalgia, unspecified (principal); F17.210 Nicotine dependence, cigarettes, uncomplicated
CPT/HCPCS: 99282-25

== ENCOUNTER 2018-12-31 04:34 | Emergency (ER) | payer SELFPAY ==
[2018-12-31 05:01] VITALS: TEMP 98.1; BMI 36.8
--- NOTE | 2018-12-31 05:05 | PDOC ---
History of Present Illness - General Chief Complaint: Pain, Acute Stated Complaint: STOMACH PAIN Time Seen by Provider: 12/31/18 04:59 - History of Present Illness Initial Comments: 12/31/18 05:13 Ms. Rai is a 33 yo female w/ no significant pmh who presents for evaluation of upper abdominal pain that woke her from sleep earlier this morning. Patient reports pain was across her upper abdomen and describes it as "mad painful." Patient reports she has had some kind of stones in the past (unsure if gall stones or kidney stones). Patient took motrin at home and reports pain has improved. Denies any other symptoms at this time. The patient denies chest pain, shortness of breath, headache and dizziness. Denies fever, chills, nausea, vomit, diarrhea and constipation. Denies dysuria, frequency, urgency and hematuria. Past History - Past Medical History Allergies/Adverse Reactions: Allergies Allergy/AdvReac Type Severity Reaction Status Date / Time No Known Allergies Allergy Verified 12/31/18 04:59 Home Medications: Ambulatory Orders NK [No Known Home Medication] 12/31/18 Asthma: Yes COPD: No Psychiatric Problems: Yes (Anxiety) - Reproductive History (#): 0 Para: 0 Cervical CA: Yes Dysfunctional Uterine Bleeding: Yes Ectopic : Yes Endometrial CA: Yes Polycystic Ovaries: Yes Therapeutic (s) & number: No Tubal Ligation: Yes Spontaneous : 0 - Suicide/Smoking/Psychosocial Hx Smoking Status: Yes Smoking History: Current every day smoker Have you smoked in the past 12 months: Yes Number of Cigarettes Smoked Daily: 5 Cigars Per Day: 0 'Breaking Loose' booklet given: 10/28/16 Hx Alcohol Use: Yes (SOCIAL) Drug/Substance Use Hx: No Substance Use Type: Alcohol Review of Systems - Review of Systems Comments:: 12/31/18 05:15 GENERAL/CONSTITUTIONAL: No fever or chills. No weakness. HEAD, EYES, EARS, NOSE AND THROAT: No change in vision. No ear pain or discharge. No sore throat. CARDIOVASCULAR: No chest pain or shortness of breath RESPIRATORY: No cough, wheezing, or hemoptysis. GASTROINTESTINAL: +Abdominal pain as described. No nausea, vomiting, diarrhea or constipation. GENITOURINARY: No dysuria, frequency, or change in urination. MUSCULOSKELETAL: No joint or muscle swelling or pain. No neck or back pain. SKIN: No rash NEUROLOGIC: No headache, vertigo, loss of consciousness, or change in strength/ sensation. ENDOCRINE: No increased thirst. No abnormal weight change HEMATOLOGIC/LYMPHATIC: No anemia, easy bleeding, or history of blood clots. ALLERGIC/IMMUNOLOGIC: No hives or skin allergy. *Physical Exam - Physical Exam Comments: 12/31/18 05:15 GENERAL: +Patient obese. Awake, alert, and fully oriented, in no acute distress HEAD: No signs of trauma, normocephalic, atraumatic EYES: PERRLA, EOMI, sclera anicteric, conjunctiva clear ENT: Auricles normal inspection, hearing grossly normal, nares patent, oropharynx clear without exudates. Moist mucosa NECK: Normal ROM, supple, no lymphadenopathy, JVD, or masses LUNGS: No distress, speaks full sentences, clear to auscultation bilaterally HEART: Regular rate and rhythm, normal S1 and S2, no murmurs, rubs or gallops, peripheral pulses normal and equal bilaterally. ABDOMEN: +TALISHA upper abdominal TTP. Soft, normoactive bowel sounds. No guarding , no rebound. No masses EXTREMITIES: Normal inspection, Normal range of motion, no edema. No clubbing or cyanosis. NEUROLOGICAL: Cranial nerves II through XII grossly intact. Normal speech, normal gait, no focal sensorimotor deficits SKIN: Warm, Dry, normal turgor, no rashes or lesions noted. ED Treatment Course - LABORATORY CBC & Chemistry Diagram: 12/31/18 05:30 12/31/18 05:30 Medical Decision Making - Medical Decision Making 12/31/18 05:44 Ms. Rai is a 33 yo female w/ no pmh who presents for evaluation of abdominal pain that woke her from sleep this AM. Patient has previously been told she has "stones." Evaluation started with CBC/CMP/PT/INR for infectious/electrolyte evaluation and pre-op preparation as needed. Patient evaluated at bedside w/ US which revealed stone in neck of GB w/out evidence of cholecystitis. Patient given tylenol / pepcid for symptomatic relief. Will be signed out to day team for formal US in AM. 12/31/18 06:53 Patient currently pending ABD US. Patient signed out to Dr. Rosas for further evaluation. *DC/Admit/Observation/Transfer Diagnosis at time of Disposition: Abdominal pain Qualifiers: Abdominal location: unspecified location Qualified Code(s): R10.9 - Unspecified abdominal pain - Referrals - Patient Instructions - Post Discharge Activity
--- NOTE | 2018-12-31 05:06 | PDOC ---
Attending Attestation - Resident Resident Name: Marcelo Myers - ED Attending Attestation I have performed the following: I have examined & evaluated the patient, The case was reviewed & discussed with the resident, I agree w/resident's findings & plan - HPI HPI: 12/31/18 06:08 Pt comes with upper quadrant pain. - Physicial Exam PE: 12/31/18 06:08 Agree with resident exam - Medical Decision Making 12/31/18 06:08 Pt has labs pending. She will be sent for a sono.
[2018-12-31] MEDS ORDERED: FAMOTIDINE 20 MG/50 ML IVPB 20 MG/50 ML MG IVPB ONE ×2 (05:20→05:32)
[2018-12-31] MEDS ORDERED: SODIUM CHLORIDE 1,000 ML IV STA (05:20)
[2018-12-31] MEDS ORDERED: ACETAMINOPHEN 1000 MG/100 ML VIAL (NON FORMULARY) IVPB ONE (05:20)
[2018-12-31] MEDS ORDERED: ACETAMINOPHEN INJECTION 100 ML IVPB ONE (05:32)
[2018-12-31 05:51] LABS: BASO % 0.9 % (0-2.0); EOS % 1.8 % (0-4.5); HEMATOCRIT 41.1 % (32.4-45.2); HEMOGLOBIN 14.5 GM/dL (10.7-15.3); MCH 29.9 pg (25.7-33.7); MCHC 35.2 g/dl (32.0-36.0); MEAN PLT VOLUME 8.6 fl (7.5-11.1); MONO % 7.2 % (3.8-10.2); NEUT % 58.1 % (42.8-82.8); PLATELET COUNT 279 K/MM3 (134-434); RBC 4.84 M/mm3 (3.60-5.2); RDW 12.5 % (11.6-15.6); WHITE BLOOD COUNT 10.9 K/mm3 (4.0-10.0)
[2018-12-31 06:04] LABS: INR 0.87 (0.83-1.09); PROTHROMBIN TIME (PATIENT) 10.3 SEC (9.7-13.0)
[2018-12-31 06:07] LABS: ACTIVATED PTT 30.5 SECONDS (25.2-36.5)
[2018-12-31 06:51] LABS: ALBUMIN 3.7 g/dl (3.4-5.0); BILIRUBIN,TOTAL 0.3 mg/dL (0.2-1); CALCIUM 8.3 mg/dL (8.5-10.1); CREATININE 0.7 mg/dL (0.55-1.3); POTASSIUM 4.1 mmol/L (3.5-5.1); TOT PROT 6.5 g/dl (6.4-8.2)
--- NOTE | 2018-12-31 07:27 | PDOC ---
*Physical Exam - Vital Signs Last Vital Signs Temp Pulse Resp BP Pulse Ox 98.1 F 70 16 122/82 99 12/31/18 04:59 12/31/18 08:03 12/31/18 08:03 12/31/18 08:03 12/31/18 08:03 <Millie Malone - Last Filed: 12/31/18 09:30> - Vital Signs Last Vital Signs Temp Pulse Resp BP Pulse Ox 98.1 F 81 18 140/100 99 12/31/18 04:59 12/31/18 04:59 12/31/18 04:59 12/31/18 04:59 12/31/18 04:59 - Physical Exam Comments: 12/31/18 07:41 GENERAL: Awake, alert, and fully oriented, in no acute distress HEAD: No signs of trauma, normocephalic, atraumatic EYES: PERRLA, EOMI, sclera anicteric, conjunctiva clear ENT: Auricles normal inspection, hearing grossly normal, nares patent, oropharynx clear without exudates. Moist mucosa NECK: Normal ROM, supple, no lymphadenopathy, JVD, or masses LUNGS: No distress, speaks full sentences, clear to auscultation bilaterally HEART: Regular rate and rhythm, normal S1 and S2, no murmurs, rubs or gallops, peripheral pulses normal and equal bilaterally. ABDOMEN: + RUQ and epigastria ttp. Soft, nontender, normoactive bowel sounds. No guarding, no rebound. No masses. Neg CVA ttp. EXTREMITIES : Normal inspection, Normal range of motion, no edema. No clubbing or cyanosis. NEUROLOGICAL: Cranial nerves II through XII grossly intact. Normal speech, normal gait, no focal sensorimotor deficits SKIN: Warm, Dry, normal turgor, no rashes or lesions noted <Marcell Rosas - Last Filed: 12/31/18 09:40> ED Treatment Course - LABORATORY CBC & Chemistry Diagram: 12/31/18 05:30 12/31/18 05:30 - ADDITIONAL ORDERS Additional order review: Laboratory Results 12/31/18 12/31/18 05:30 05:30 PT with INR 10.30 INR 0.87 PTT (Actin FS) 30.5 Sodium 137 Potassium 4.1 Chloride 106 Carbon Dioxide 25 Anion Gap 7 L BUN 19.0 H Creatinine 0.7 Est GFR (CKD-EPI)AfAm 132.87 Est GFR (CKD-EPI)NonAf 114.64 Random Glucose 150 H Calcium 8.3 L Total Bilirubin 0.3 AST 26 ALT 41 Alkaline Phosphatase 65 Total Protein 6.5 Albumin 3.7 12/31/18 05:30 RBC 4.84 MCV 85.0 MCHC 35.2 RDW 12.5 MPV 8.6 Neutrophils % 58.1 Lymphocytes % 32.0 Monocytes % 7.2 Eosinophils % 1.8 D Basophils % 0.9 - Medications Given in the ED: ED Medications Discontinued Medications Generic Name Dose Route Start Last Admin Trade Name Freq PRN Reason Stop Dose Admin Acetaminophen 1,000 mg 12/31/18 05:20 12/31/18 05:45 Ofirmev Injection - IVPB 12/31/18 05:21 1,000 mg ONCE ONE Administration Famotidine/Sodium Chloride 20 mg in 50 mls @ 100 mls/hr 12/31/18 05:20 05:45 Pepcid 20 Mg Premixed Ivpb - IVPB 12/31/18 05:49 100 mls/hr ONCE ONE Administration Sodium Chloride 1,000 mls @ 1,000 mls/hr 12/31/18 05:20 12/31/18 05:45 Normal Saline - IV 12/31/18 06:19 1,000 mls/hr ASDIR STA Administration <Millie Malone - Last Filed: 12/31/18 09:30> - LABORATORY CBC & Chemistry Diagram: 12/31/18 05:30 12/31/18 05:30 - ADDITIONAL ORDERS Additional order review: Laboratory Results 12/31/18 12/31/18 05:30 05:30 PT with INR 10.30 INR 0.87 PTT (Actin FS) 30.5 Sodium 137 Potassium 4.1 Chloride 106 Carbon Dioxide 25 Anion Gap 7 L BUN 19.0 H Creatinine 0.7 Est GFR (CKD-EPI)AfAm 132.87 Est GFR (CKD-EPI)NonAf 114.64 Random Glucose 150 H Calcium 8.3 L Total Bilirubin 0.3 AST 26 ALT 41 Alkaline Phosphatase 65 Total Protein 6.5 Albumin 3.7 12/31/18 05:30 RBC 4.84 MCV 85.0 MCHC 35.2 RDW 12.5 MPV 8.6 Neutrophils % 58.1 Lymphocytes % 32.0 Monocytes % 7.2 Eosinophils % 1.8 D Basophils % 0.9 12/31/18 08:52 Patient Information: : 1985 Order Type: Preliminary Name: KENDY HODGSON Sex: F Study Description: US ABDOMEN LIMITED Modality: US Location: [facility] Referring Physician: SHARMILA CASTELLANOS Comments: Jerome Herrera MD wrote on Dec 31, 2018 at 08:31 AM: Referring Physician: SHARMILA CASTELLANOS Patient Name: GOKUL LARRY THIS IS A PRELIMINARY REPORT FROM [facility] DATE OF SERVICE: 2018-12-31 07:48:59 IMAGES: 46 EXAM: ABDOMEN US -LIMITED HISTORY: Right upper quadrant pain COMPARISON: None. FINDINGS: Real-time ultrasound examination of the abdomen was performed in a limited fashion. The liver is normal in size. Its echotexture is diffusely increased, consistent with fatty infiltration. No focal mass is seen within it. The pancreas is suboptimally seen, secondary to overlying bowel gas. It appears prominent, however, no further evaluation can be made. The gallbladder is adequately distended and contains multiple, mobile, intraluminal calculi there is no evidence of gallbladder wall thickening or pericholecystic fluid. The intra-and extrahepatic biliary ducts are not dilated. The CBD measures 0.4 cm in diameter. No free fluid is seen in the visualized abdomen. CONFIDENTIALITY NOTICE: This information is intended only for the use of the recipient(s) named above. If you are not the intended recipient, or a person responsible for delivering it to the intended recipient, you are hereby notified that any disclosure, copying, distribution or use of any of the information contained in or attached to this transmission is STRICTLY PROHIBITED. If you have received this transmission in error, please immediately notify [facility] Engineer and destroy the original transmission and its attachments without saving them in any manner [address] [facility] [address] [place] [address] Phone: [phone] ([phone]) Fax: Email: [email or web address] Web: [email or web address] Patient Information: : 1985 Order Type: Preliminary Name: KENDY HODGSON Sex: F Study Description: US ABDOMEN LIMITED Modality: US Location: [facility] Referring Physician: SHARMILA CASTELLANOS The right kidney measures 12.7 cm in length by 5.0 cm in AP diameter by 6.3 cm in width. Its echotexture is normal and there is no evidence of hydronephrosis, calculi, or mass. No perinephric fluid is identified. The abdominal aorta and IVC are unremarkable. IMPRESSION: 1. Fatty liver. 2. Cholelithiasis. 3. Suboptimally seen pancreas, however, its visualized portions appear prominent. No further evaluation can be made. THIS DOCUMENT HAS BEEN ELECTRONICALLY SIGNED Jerome Herrera MD 12/31/2018 08:30 [facility]. Please call [facility] Network Security Engineer [phone] ([phone]) with questions. Jerome Herrera MD - Medications Given in the ED: ED Medications Discontinued Medications Generic Name Dose Route Start Last Admin Trade Name Chasity PRN Reason Stop Dose Admin Acetaminophen 1,000 mg 12/31/18 05:20 12/31/18 05:45 Ofirmev Injection - IVPB 12/31/18 05:21 1,000 mg ONCE ONE Administration Famotidine/Sodium Chloride 20 mg in 50 mls @ 100 mls/hr 12/31/18 05:20 05:45 Pepcid 20 Mg Premixed Ivpb - IVPB 12/31/18 05:49 100 mls/hr ONCE ONE Administration Sodium Chloride 1,000 mls @ 1,000 mls/hr 12/31/18 05:20 12/31/18 05:45 Normal Saline - IV 12/31/18 06: 1,000 mls/hr ASDIR STA Administration <Marcell Rosas - Last Filed: 12/31/18 09:40> Medical Decision Making - Medical Decision Making 12/31/18 07:27 33 yo F with h/o anxiety who p/w RUQ pain. Pt. endorsed by Dr. Myers. Pending RUQ U/S. R/o cholecystitis . Vitals wnl, AF, A&Ox3. Physical exam notable for RUQ and epigastric ttp. Tolerating PO intake. Denies N/V, F,C, CP, SOB, urinary complaints, hematuria, BPR, diarrhea, constipation, lightheadedness , weakness, sensory changes.Will consider gastritis, esophagitis, pancreatitis, biliary disease. Ed course notable for unremarkable CBC, CMP. Neg preg. Treated with famotidine, tylenol, NS. Ed Course: 12/31/18 08:52 RUQ U/S: The gallbladder is adequately distended and contains multiple, mobile, intraluminal calculi there is no evidence of gallbladder wall thickening or pericholecystic fluid. The intra-and extrahepatic biliary ducts are not dilated. The CBD measures 0.4 cm in diameter. No free fluid is seen in the visualized abdomen. 12/31/18 09:31 Pt. tolerating PO intake Advised to f/u gen surg and GI stable for d/c with return precautions <Marcell Rosas - Last Filed: 12/31/18 09:40> *DC/Admit/Observation/Transfer <Millie Malone - Last Filed: 12/31/18 09:30> <Marcell Rosas - Last Filed: 12/31/18 09:40> Diagnosis at time of Disposition: Cholelithiasis Abdominal pain Qualifiers: Abdominal location: unspecified location Qualified Code(s): R10.9 - Unspecified abdominal pain - Discharge Dispostion Disposition: HOME Condition at time of disposition: Stable - Referrals Referrals: Paul Harris MD [Staff Physician] - Victorino Sutherland MD [Staff Physician] - Je Abad MD [Staff Physician] - - Patient Instructions Printed Discharge Instructions: DI for Gallstones, DI for Epigastric Pain Additional Instructions: Please return to the emergency department with any new or worsening symptoms or concerns. Please follow up with your primary care physician and gastoenterologist, and general surgery within 72 hours.
[2018-12-31 08:05] VITALS: BP 122/82; PULSE 70
== END 2018-12-31 09:50 | disposition home or self-care (01) ==
LOC: JER 04:34
PROC: 3E033NZ Introduction of Analgesics, Hypnotics, Sedatives into Peripheral Vein, Percutaneous Approach (ICD-10-PCS; principal; 2018-12-31)
PROC: 3E0337Z Introduction of Electrolytic and Water Balance Substance into Peripheral Vein, Percutaneous Approach (ICD-10-PCS; 2018-12-31)
PROC: 3E033GC Introduction of Other Therapeutic Substance into Peripheral Vein, Percutaneous Approach (ICD-10-PCS; 2018-12-31)
DX: K80.20 Calculus of gallbladder without cholecystitis without obstruction (principal); R10.10 Upper abdominal pain, unspecified; F17.210 Nicotine dependence, cigarettes, uncomplicated
CPT/HCPCS: 36415; 76705-TC; 80053; 85025; 85610; 85730; 99282-25; J0131; J7030

== ENCOUNTER 2020-04-11 20:18 | Emergency (ER) | payer OTHER ==
[2020-04-11 20:24] VITALS: BP 156/99; PULSE 65; TEMP 97; BMI 36.0
--- OUTSIDE RECORDS SUMMARY | 2020-04-11 20:34 | XMS ---
:1985 [facility] Providers Name Role Phone Husam Cheema MD Unavailable Unavailable ED STAFF PHYSICIAN, STAFF Unavailable Unavailable ED STAFF PHYSICIAN Unavailable Unavailable Re-disclosure Warning The records that you are about to access may contain information from federally- assisted alcohol or drug abuse programs. If such information is present, then the following federally mandated warning applies: This information has been disclosed to you from records protected by federal confidentiality rules (42 CFR part 2). The federal rules prohibit you from making any further disclosure of this information unless further disclosure is expressly permitted by the written consent of the person to whom it pertains or as otherwise permitted by 42 CFR part 2. A general authorization for the release of medical or other information is NOT sufficient for this purpose. The Federal rules restrict any use of the information to criminally investigate or prosecute any alcohol or drug abuse patient.The records that you are about to access may contain highly sensitive health information, the redisclosure of which is protected by Article 27-F of the [facility] Public Health law. If you continue you may haveaccess to information: Regarding HIV / AIDS; Provided by facilities licensed or operated by the [facility] Office of Mental Health; or Provided by the [facility] Office for People With Developmental Disabilities. If such information is present, then the following [facility] mandated warning applies: This information has been disclosed to you from confidential records which are protected by state law. State law prohibits you from making any further disclosure of this information without the specific written consent of the person to whom it pertains, or as otherwise permitted by law. Any unauthorized further disclosure in violation of state law may result in a fine or halfway sentence or both. A general authorization for the release of medical or other information is NOT sufficient authorization for further disclosure. Allergies and Adverse Reactions Type Description Substance Reaction Status Data Source(s ) Drug allergy No Known Allergies No Known NO KNOWN ALLERG [facility] Encounters Encounter Providers Location Date Indications Data Source(s ) Emergency Attender: Husam 07/06/2019 CHEST PAIN Zeus Cheema MD 11:51:00 AM [facility] EST - 07/06/2019 03:58:00 PM EST CHEST PAIN [place] Patient discharged. Emergency Attender: ED STAFF H 06/24/2019 06:45:00 AM [facility] PHYSICIANAttender: STAFF ED EST - 06/24/2019 [facility] STAFF PHYSICIANAdmitter: ED 01:29:00 PM EST STAFF PHYSICIAN Patient discharged. Insurance Providers Payer name Policy type Policy ID Covered Covered alliance party's Policy P treri / Coverage alliance party ID relationship to Pichardo Inf ormation type pichardo [employer] MEDICAID [id number] SP [id number] COMM PLAN MEDICAID [id number] PT [id number] SELF PAY PT INSURANCE O SELF PAY SP INSURANCE [employer] O 01 HEALTH PLAN Problems, Conditions, and Diagnoses Code Display Name Description Problem Type Effective Dates Data Source(s) F41.9 Anxiety disorder, F41.9 Diagnosis 07/06/2019 [facility] abreu unspecified 12:22:00 PM EST Hospital R07.89 Other chest pain R07.89 Diagnosis 07/06/2019 [facility] bernabe 12:22:00 PM EST Hospital Z72.0 Tobacco use TOBACCO USE Diagnosis 06/24/2019 [facility] 06:45:00 AM EST Medical C enter K29.70 Gastritis, GASTRITIS, Diagnosis 06/24/2019 [facility] unspecified, UNSPECIFIED, 06:45:00 AM EST Medic al Center without bleeding WITHOUT BLEEDING R10.13 Epigastric pain EPIGASTRIC PAIN Diagnosis 06/24/2019 Marisabel Gomez 06:45:00 AM EST Medical C enter Surgeries/Procedures Procedure Description Date Indications Data Source(s) Electrocardiographic procedure 07/06/2019 [facility] (procedure) 12:00:00 AM Hospital EST Plain chest X-ray (procedure) 07/06/2019 [facility] 12:00:00 AM Hospital EST Electrocardiographic procedure 07/06/2019 [facility] (procedure) 12:00:00 AM Hospital EST Results ID Date Data Source [id number] 07/06/2019 02:06:00 PM [facility] TEST PERFORMED BY [employer] ULTRA SENSITIVE CENTAUR CHEMILUMINESCENCE METHOD. Name Value Range Interpretation Description Data Sup porting Code Source(s) Document(s ) Troponin 0.01 [facility] I.cardiac ng/mL Hospital [Mass/volume ] in Serum or Plasma ID Date Data Source [id number] 07/06/2019 02:06:00 PM [facility] Name Value Range Interpretation Description Data Sup porting Code Source(s) Document(s ) Calcium 9.2 mg/dL [facility] [Mass/volume Hospital ] in Serum or Plasma ID Date Data Source [id number] 07/06/2019 02:06:00 PM [facility] Name Value Range Interpretation Code Description Data Fartun rce(s) Supporting Document(s ) Urea 21.7 [facility] nitrogen/Cre Hospital atinine [Mass Ratio] in Serum or Plasma ID Date Data Source [id number] 07/06/2019 02:06:00 PM [facility] Name Value Range Interpretation Description Data Sup porting Code Source(s) Document(s ) Creatinine 0.6 mg/dL [facility] [Mass/volume] Hospital in Serum or Plasma ID Date Data Source [id number] 07/06/2019 02:06:00 PM [facility] Name Value Range Interpretation Description Data Sup porting Code Source(s) Document(s ) Urea 13 mg/dL [facility] nitrogen Hospital [Mass/volume ] in Serum or Plasma ID Date Data Source [id number] 07/06/2019 02:06:00 PM EST [facility] Name Value Range Interpretation Code Description Data Fartun rce(s) Supporting Document(s ) Anion gap in 12 [facility] Serum or Hospital Plasma ID Date Data Source [id number] 07/06/2019 02:06:00 PM EST [facility] Name Value Range Interpretation Description Data Sup porting Code Source(s) Document(s ) Carbon 27 mmol/L [facility] dioxide, Hospital total [Moles/volu me] in Serum or Plasma ID Date Data Source [id number] 07/06/2019 02:06:00 PM EST [facility] Name Value Range Interpretation Description Data Sup porting Code Source(s) Document(s ) Chloride 102 [facility] [Moles/volum mmol/L Hospital e] in Serum or Plasma ID Date Data Source [id number] 07/06/2019 02:06:00 PM EST [facility] Name Value Range Interpretation Description Data Sup porting Code Source(s) Document(s ) Potassium 4.2 [facility] [Moles/volume mmol/L Hospital ] in Serum or Plasma ID Date Data Source [id number] 07/06/2019 02:06:00 PM EST [facility] Name Value Range Interpretation Description Data Sup porting Code Source(s) Document(s ) Sodium 137 mmol/L [facility] [Moles/volu Hospital me] in Serum or Plasma ID Date Data Source [id number] 07/06/2019 02:06:00 PM EST [facility] Name Value Range Interpretation Description Data Sup porting Code Source(s) Document(s ) Glucose 120 mg/dL [facility] [Mass/volume Hospital ] in Serum or Plasma ID Date Data Source [id number] 07/06/2019 02:06:00 PM [facility] A VALUE LESS THAN 500 NG/ML FEU IN PATIE NTS UNDER AGE 50, WHEN COMBINED WITH A CLINICAL ASSESSMENT OF LOW PRETEST PROBA BILITY, HAS BEEN SHOWN TO HAVE A HIGH NEGATIVE PREDICTIVE VALUE FOR DVT OR PE. USING AGE-ADJUSTED THRESHOLDS (AGE X 10) IN PATIENTS OLDER THAN 50 YEARS IS RECOMMEN DED FOR DETERMINING WHETHER IMAGING IS WARRANTED.D-DIMER IS NOT A SPECIFIC BEVERLY ER FOR DVT OR PE AND CAN BE ELEVATED IN THE ELDERLY WELL IN THE FOLLOWING COND ITIONS: , CANCER, INFECTION, DIC, TRAUMA AND INFLAMMATION. Name Value Range Interpretation Description Data Sup porting Code Source(s) Document(s ) Fibrin < 215 [facility] D-dimer FEU ng/mL Hospital [Mass/volume ] in Platelet poor plasma ID Date Data Source [id number] 07/06/2019 02:06:00 PM [facility] Name Value Range Interpretation Description Data Sup porting Code Source(s) Document(s ) Platelet mean 9.8 fL [facility] volume Hospital [Entitic volume] in Blood by Automated count ID Date Data Source [id number] 07/06/2019 02:06:00 PM [facility] Name Value Range Interpretation Description Data Sup porting Code Source(s) Document(s ) Platelets 311 [facility] [#/volume] in 10*3/uL Hospital Blood by Automated count ID Date Data Source [id number] 07/06/2019 02:06:00 PM [facility] Name Value Range Interpretation Description Data Sup porting Code Source(s) Document(s ) Erythrocyte 11.7 % [facility] distribution Hospital width [Ratio] by Automated count ID Date Data Source [id number] 07/06/2019 02:06:00 PM [facility] Name Value Range Interpretation Description Data Sup porting Code Source(s) Document(s ) Erythrocyte mean 35.0 [facility] corpuscular g/dL Hospital hemoglobin concentration [Mass/volume] by Automated count ID Date Data Source [id number] 07/06/2019 02:06:00 PM [facility] Name Value Range Interpretation Description Data Sup porting Code Source(s) Document(s ) Erythrocyte 29.8 pg [facility] mean Hospital corpuscular hemoglobin [Entitic mass] by Automated count ID Date Data Source [id number] 07/06/2019 02:06:00 PM [facility] Name Value Range Interpretation Description Data Sup porting Code Source(s) Document(s ) Erythrocyte 85.1 fL [facility] mean Hospital corpuscular volume [Entitic volume] by Automated count ID Date Data Source [id number] 07/06/2019 02:06:00 PM [facility] Value Range Interpretation Description Data Sup porting Code Source(s) Document(s ) Hematocrit 44.0 % [facility] [Volume Hospital Fraction] of Blood by Automated count ID Date Data Source [id number] 07/06/2019 02:06:00 PM [facility] Name Value Range Interpretation Description Data Sup porting Code Source(s) Document(s ) Hemoglobin 15.4 g/dL [facility] [Mass/volume] Hospital in Blood ID Date Data Source [id number] 07/06/2019 02:06:00 PM [facility] Value Range Interpretation Description Data Sup porting Code Source(s) Document(s ) Erythrocytes 5.17 [facility] [#/volume] in 10*6/uL Hospital Blood by Automated count ID Date Data Source [id number] 07/06/2019 02:06:00 PM [facility] Value Range Interpretation Description Data Sup porting Code Source(s) Document(s ) Leukocytes 11.1 [facility] [#/volume] in 10*3/uL Hospital Blood by Automated count ID Date Data Source [id number] 07/06/2019 12:31:00 PM [facility] Name Value Range Interpretation Description Data Sup porting Code Source(s) Document(s ) Choriogonadotropin NEGATIVE Kimberly ( test) [place] [Presence] in Urine Hospital ID Date Data Source Liver 06/24/2019 07:25:00 AM [facility] [id number] Name Value Range Interpretation Description Data Sup porting Code Source(s) Document(s ) Aspartate 14-36 <content [facility] aminotransferase styleCode="Bold"> [facility] [Enzymatic Aspartate Medical activity/volume] Aminotransferase Center in Serum or Plasma (AST) </content>34 IU/L<content styleCode="Italic s"> (14-36 IU/L)</content> Alanine 7-30 Above high <content [facility] aminotransferase normal styleCode="Bold"> [facility] [Enzymatic Alanine Medical activity/volume] Aminotransferase Center in Serum or Plasma (ALT) </content>55 IU/L H<content styleCode="Italic s"> (7-30 IU/L)</content> Bilirubin.total 0.2-1.3 <content [facility] [Mass/volume] in styleCode="Bold"> [facility] Serum or Plasma Bilirubin Total Medical </content>0.4 Center MG/DL<content styleCode="Italic s"> (0.2-1.3 MG/DL)</content> UNK 0.0-0.3 <content [facility] styleCode="Bold"> [facility] Bilirubin, Direct Medical </content>< 0.2 Center MG/DL<content styleCode="Italic s"> (0.0-0.3 MG/DL)</content> Alkaline 38-126 <content [facility] phosphatase styleCode="Bold"> [facility] [Enzymatic Alkaline Medical activity/volume] Phosphatase (ALP) Cente r in Serum or Plasma </content>69 IU/L<content styleCode="Italic s"> (38-126 IU/L)</content> Albumin 3.5-5.0 <content [facility] [Mass/volume] in styleCode="Bold"> [facility] Serum or Plasma Albumin Medical </content>4.6 Center G/DL<content styleCode="Italic s"> (3.5-5.0 G/DL)</content> ID Date Data Source [id number] 06/24/2019 07:25:00 AM [facility] 0500 Name Value Range Interpretation Description Data Sup porting Code Source(s) Document(s ) Hemoglobin 12.3-16. <content [facility] [Mass/volume] in 0 styleCode="Bold [facility] Blood ">Hemoglobin Medical </content>15.3 Center G/DL<content styleCode="Ital ics"> (12.3-16.0 G/DL)</content> Erythrocytes 4.0-5.1 Above high <content [facility] [#/volume] in normal styleCode="Bold [facility] Blood by ">Red Blood Medical Automated count Cell Count Center </content>5.16 MCUMM H<content styleCode="Ital ics"> (4.0-5.1 MCUMM)</content > Leukocytes 4.4-11.0 Above high <content [facility] [#/volume] in normal styleCode="Bold [facility] Blood by ">White Blood Medical Automated count Cell Count Center </content>11.64 KCUMM H<content styleCode="Ital ics"> (4.4-11.0 KCUMM)</content > Erythrocyte mean 26.0-34. <content [facility] corpuscular 0 styleCode="Bold [facility] hemoglobin ">Mean Medical [Entitic mass] Corposcular Center by Automated Hemoglobin count </content>29.7 PG<content styleCode="Ital ics"> (26.0-34.0 PG)</content> Hematocrit 36.0-46. <content [facility] [Volume 0 styleCode="Bold [facility] Fraction] of ">Hematocrit Medical Blood by </content>44.1 Center Automated count %<content styleCode="Ital ics"> (36.0-46.0 %)</content> Erythrocyte mean 80.0-100 <content [facility] corpuscular .0 styleCode="Bold [facility] volume [Entitic ">Mean Medical volume] by Corpuscular Center Automated count Volume </content>85.5 FL<content styleCode="Ital ics"> (80.0-100.0 FL)</content> Erythrocyte 11.5-14. <content [facility] distribution 5 styleCode="Bold [facility] width [Ratio] by ">Red Cell Medical Automated count Distribution Center Width </content>11.6 %<content styleCode="Ital ics"> (11.5-14.5 %)</content> Erythrocyte mean 32.0-37. <content [facility] corpuscular 0 styleCode="Bold [facility] hemoglobin ">Mean Corpus. Medical concentration Hgb Center [Mass/volume] by Concentration Automated count (MCHC) </content>34.7 G/DL<content styleCode="Ital ics"> (32.0-37.0 G/DL)</content> Platelet mean 8.0-11.0 <content [facility] volume [Entitic styleCode="Bold [facility] volume] in Blood ">Mean Platelet Medical by Automated Volume Center count </content>10.4 FL<content styleCode="Ital ics"> (8.0-11.0 FL)</content> Platelets 130-400 <content [facility] [#/volume] in styleCode="Bold [facility] Blood by ">Platelet Medical Automated count Count Center </content>312 KCUMM<content styleCode="Ital ics"> (130-400 KCUMM)</content > UNK 0 <content [facility] styleCode="Bold Jason ">Nucleated Red Medical Blood Cell Center </content>0.0 /100<content styleCode="Ital ics"> (0 /100)</content> UNK 0.0 <content [facility] styleCode="Bold Jason ">Nucleated Red Medical Blood Cell Center Count </content>0.00 KCUMM<content styleCode="Ital ics"> (0.0 KCUMM)</content > ID Date Data Source GFR(Creatinine).[id number] 06/24/2019 07:25:00 AM [facility] 0-0500 Name Value Range Interpretation Code Description Data Fartun rce(s) Supporting Document(s ) UNK > 60 <content [facility] styleCode="Bold"> Medical Cent er EGFR </content>122 GFR<content styleCode="Italic s"> (> 60 GFR)</content> ID Date Data Source [id number] 06/24/2019 07:25:00 AM S[facility] llamas [facility] -0500 Name Value Range Interpretation Description Data Sup porting Code Source(s) Document(s ) Lipase 23-300 <content [facility] [Enzymatic styleCode="Bold Medical activity/vo ">Lipase Center lume] in </content>87 Serum or IU/L<content Plasma styleCode="Ital ics"> (23-300 IU/L)</content> ID Date Data Source [id number] 06/24/2019 07:25:00 AM S[facility] Name Value Range Interpretation Description Data Sup porting Code Source(s) Document(s ) Potassium 3.5-5.3 <content [facility] [Moles/volume] in styleCode="Bold"> [facility] phs Serum or Plasma Potassium Medical </content>4.3 Center MEQ/L<content styleCode="Italic s"> (3.5-5.3 MEQ/L)</content> Chloride 98-107 <content [facility] [Moles/volume] in styleCode="Bold"> [facility] Serum or Plasma Chloride Medical </content>100 Center MEQ/L<content styleCode="Italic s"> (98-107 MEQ/L)</content> Sodium 137-145 <content [facility] [Moles/volume] in styleCode="Bold"> [facility] Serum or Plasma Sodium Medical </content>139 Center MEQ/L<content styleCode="Italic s"> (137-145 MEQ/L)</content> Carbon dioxide, 22-30 Above high <content [facility] total normal styleCode="Bold"> [facility] [Moles/volume] in Carbon Dioxide Medical Serum or Plasma </content>31 Center MEQ/L H<content styleCode="Italic s"> (22-30 MEQ/L)</content> Glucose 74-106 Above high <content [facility] [Mass/volume] in normal styleCode="Bold"> [facility] Serum or Plasma Glucose Medical </content>161 Center MG/DL H<content styleCode="Italic s"> (74-106 MG/DL)</content> UNK 7-17 Above high <content [facility] normal styleCode="Bold"> [facility] BUN </content>19 Medical MG/DL H<content Center styleCode="Italic s"> (7-17 MG/DL)</content> Creatinine 0.5-1.3 <content [facility] [Mass/volume] in styleCode="Bold"> [facility] Serum or Plasma Creatinine Medical </content>0.6 Center MG/DL<content styleCode="Italic s"> (0.5-1.3 MG/DL)</content> Calcium 8.4-10. <content [facility] [Mass/volume] in 2 styleCode="Bold"> [facility] Serum or Plasma Calcium Medical </content>10.1 Center MG/DL<content styleCode="Italic s"> (8.4-10.2 MG/DL)</content> Alanine 7-30 Above high <content [facility] aminotransferase normal styleCode="Bold"> [facility] [Enzymatic Alanine Medical activity/volume] Aminotransferase Center in Serum or Plasma (ALT) </content>55 IU/L H<content styleCode="Italic s"> (7-30 IU/L)</content> Albumin 3.5-5.0 <content [facility] [Mass/volume] in styleCode="Bold"> [facility] Serum or Plasma Albumin Medical </content>4.6 Center G/DL<content styleCode="Italic s"> (3.5-5.0 G/DL)</content> Alkaline 38-126 <content [facility] phosphatase styleCode="Bold"> [facility] [Enzymatic Alkaline Medical activity/volume] Phosphatase (ALP) Cente r in Serum or Plasma </content>69 IU/L<content styleCode="Italic s"> (38-126 IU/L)</content> Aspartate 14-36 <content [facility] aminotransferase styleCode="Bold"> [facility] [Enzymatic Aspartate Medical activity/volume] Aminotransferase Center in Serum or Plasma (AST) </content>34 IU/L<content styleCode="Italic s"> (14-36 IU/L)</content> Bilirubin.total 0.2-1.3 <content [facility] [Mass/volume] in styleCode="Bold"> [facility] Serum or Plasma Bilirubin Total Medical </content>0.4 Center MG/DL<content styleCode="Italic s"> (0.2-1.3 MG/DL)</content> UNK > 60 <content [facility] styleCode="Bold"> [facility] EGFR Medical </content>122 Center GFR<content styleCode="Italic s"> (> 60 GFR)</content> Procedure Social History Code Duration Value Status Description Data Source(s ) Smoking 06/24/2019 Occasional Smoker completed Occasional Smoker [facility] 07:21:00 AM EST Medical C enter Smoking 06/24/2019 Occasional Smoker completed Occasional Smoker [facility] 06:57:00 AM EST Medical C enter Vital Signs ID Date Data Source UNK Name Value Range Interpretation Code Description Data Source(s) Diastolic blood 93 mm[Hg] 93 mm[Hg] [facility] pressure Hospital Systolic blood 148 mm[Hg] 148 mm[Hg] [facility] Respiratory rate 20 /min 20 /min [facility] Heart rate 90 /min 90 /min [facility] Body temperature 36.12186 36.67469 [facility] Body temperature 98.2 [degF] 98.2 [degF] [facility] Body mass index 236.0 kg/m2 236.0 kg/m2 [facility] abreu (BMI) [Ratio] Hospital Body weight 234.48 234.48 [lb_av] [facility] [lb_av] Hospital Body temperature 36.643729 36.943107 [facility] Respiratory rate 20 /min 20 /min [facility] Oxygen saturation 98 % 98 % [facility] osephs in Arterial blood Medical Center by Pulse oximetry Heart rate 83 /min 83 /min [facility] Diastolic blood 78 mm[Hg] 78 mm[Hg] [facility] pressure Medical Center Systolic blood 149 mm[Hg] 149 mm[Hg] [facility] pressure [facility] Center Body weight 109.089646 109.205059 kg [facility] Measured kg Medical Center Body temperature 36.443154 36.306261 [facility] Respiratory rate 17 /min 17 /min [facility] Oxygen saturation 98 % 98 % [facility] rand in Arterial blood Medical Center by Pulse oximetry Heart rate 108 /min 108 /min [facility] Diastolic blood 113 mm[Hg] 113 mm[Hg] [facility] pressure Medical Center Systolic blood 163 mm[Hg] 163 mm[Hg] [facility] pressure Medical [facility] [place]
[2020-04-11] MEDS ORDERED: IBUPROFEN 600 MG TABLET (FP) PO ONE ×2 (21:09→21:18)
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
== END 2020-04-11 21:33 | disposition home or self-care (01) ==
LOC: JERFT 20:18
DX: M25.512 Pain in left shoulder (principal); M54.5 Low back pain
CPT/HCPCS: 73030-TC-LT-FY; 99283-25

== ENCOUNTER 2020-05-29 12:15 | Emergency (ER) | payer OTHER ==
[2020-05-29 12:32] VITALS: BP 167/95; PULSE 99; BMI 38.5
[2020-05-29 12:43] VITALS: TEMP 98.5
[2020-05-29 14:50] LABS: HIV INTERPRETATION NEGATIVE (NEGATIVE)
== END 2020-05-29 13:37 | disposition home or self-care (01) ==
LOC: JERFT 12:15
DX: L21.9 Seborrheic dermatitis, unspecified (principal)
CPT/HCPCS: 36415; 87389; 99283-25

== ENCOUNTER 2020-06-02 03:32 | Emergency (ER) | payer OTHER ==
[2020-06-02 03:44] VITALS: BP 154/96; PULSE 98; TEMP 98.3; BMI 38.7
[2020-06-02] MEDS ORDERED: predniSONE 20 MG TABLET (UD) PO ONE (03:54)
[2020-06-02] MEDS ORDERED: predniSONE 20 MG TABLET (UD) ONE (03:54)
== END 2020-06-02 04:09 | disposition home or self-care (01) ==
LOC: FER 03:32
DX: R21 Rash and other nonspecific skin eruption (principal)
CPT/HCPCS: 99283-25

== ENCOUNTER 2020-11-13 15:33 | Emergency (ER) | payer OTHER ==
[2020-11-13 15:42] VITALS: BP 141/98; PULSE 115; BMI 38.3
[2020-11-13] MEDS ORDERED: METHOCARBAMOL 500 MG TABLET PO ONE ×2 (16:39→16:44)
[2020-11-13] MEDS ORDERED: KETOROLAC TROMETHAMINE 30 MG/1 ML VIAL IM ONE ×2 (16:39→17:31)
[2020-11-13] MEDS ORDERED: METHOCARBAMOL 500 MG TABLET ONE (17:06)
[2020-11-13] MEDS ORDERED: KETOROLAC TROMETHAMINE 30 MG/1 ML VIAL ONE ×2 (17:43→17:44)
== END 2020-11-13 18:02 | disposition home or self-care (01) ==
LOC: JER 15:33
PROC: 3E0233Z Introduction of Anti-inflammatory into Muscle, Percutaneous Approach (ICD-10-PCS; principal; 2020-11-13)
DX: S23.9XXA Sprain of unspecified parts of thorax, initial encounter (principal); M62.838 Other muscle spasm
CPT/HCPCS: 72050-TC-FY; 72070-TC-FY; 73030-TC-LT-FY; 99284-25

== ENCOUNTER 2021-04-22 20:03 | Emergency (ER) | payer OTHER ==
[2021-04-22] MEDS ORDERED: IBUPROFEN 600 MG TABLET (FP) PO ONE ×2 (20:26)
[2021-04-22 20:29] VITALS: BP 151/103; PULSE 112; TEMP 99.5; BMI 38.3
== END 2021-04-22 22:18 | disposition home or self-care (01) ==
LOC: FER 20:03
DX: S93.401A Sprain of unspecified ligament of right ankle, initial encounter (principal); V78.4XXA Person boarding or alighting from bus injured in noncollision transport accident, initial encounter; X50.0XXA Overexertion from strenuous movement or load, initial encounter
CPT/HCPCS: 73610-TC-RT-FY; 99283-25

== ENCOUNTER 2021-10-16 13:52 | Emergency (ER) | payer OTHER ==
[2021-10-16] MEDS ORDERED: SODIUM CHLORIDE 0.9% 1000 ML INFUS.BAG IV ONE (14:34)
[2021-10-16] MEDS ORDERED: ONDANSETRON 4 MG/2 ML VIAL IVPUSH ONE (14:35)
[2021-10-16 14:37] VITALS: PULSE 88; BMI 38.7
[2021-10-16 14:53] LABS: HCG,QUALITATIVE URINE Negative
[2021-10-16 15:06] LABS: WHITE BLOOD COUNT 9.8 10^3/uL (4.0-10.8)
[2021-10-16 15:07] LABS: HEMATOCRIT 41.3 % (32.4-45.2); HEMOGLOBIN 14.9 G/dL (10.7-15.3); MCH 30.8 pg (25.7-33.7); MCHC 36.1 g/dl (32.0-36.0); MEAN CELL VOLUME 85.3 fl (80-96); MEAN PLT VOLUME 8.2 fl (7.5-11.1); RBC 4.84 10^6/uL (3.60-5.2); RDW 13.5 % (11.6-15.6)
[2021-10-16 15:12] LABS: ALBUMIN 3.8 g/dl (3.4-5.0); BILIRUBIN,TOTAL 0.8 mg/dl (0.2-1); CALCIUM 9.1 mg/dl (8.5-10); CREATININE 0.6 mg/dl (0.55-1.3); TOT PROT 6.5 g/dl (6.4-8.2)
[2021-10-16] MEDS ORDERED: ONDANSETRON 4 MG/2 ML VIAL ONE (15:25)
[2021-10-16] MEDS ORDERED: KETOROLAC TROMETHAMINE 15 MG/ML VIAL IVPUSH ONE (17:12)
[2021-10-16] MEDS ORDERED: KETOROLAC TROMETHAMINE 15 MG/ML VIAL ONE (17:18)
[2021-10-16 17:32] VITALS: BP 138/88; TEMP 98.4
== END 2021-10-16 17:47 | disposition home or self-care (01) ==
LOC: FER 13:52
PROC: 3E033GC Introduction of Other Therapeutic Substance into Peripheral Vein, Percutaneous Approach (ICD-10-PCS; principal; 2021-10-16)
DX: K80.50 Calculus of bile duct without cholangitis or cholecystitis without obstruction (principal)
CPT/HCPCS: 36415; 76705-TC; 80053; 81003; 83690; 84703; 85027; 99284-25

== ENCOUNTER 2022-01-01 14:30 | Emergency (ER) | payer OTHER ==
[2022-01-01 14:41] VITALS: BP 137/90; PULSE 99; TEMP 98; BMI 37.9
[2022-01-01] MEDS ORDERED: SULFAMETHOXAZOLE/TRIMETHOPRIM 800MG/160MG D.S. TABLET PO ONE (15:49)
[2022-01-01] MEDS ORDERED: SULFAMETHOXAZOLE/TRIMETHOPRIM 800MG/160MG D.S. TABLET ONE (15:53)
== END 2022-01-01 15:52 | disposition home or self-care (01) ==
LOC: FER 14:30
DX: L03.312 Cellulitis of back [any part except buttock and flank] (principal)
CPT/HCPCS: 99283-25

== ENCOUNTER 2024-01-01 13:44 | Emergency (ER) | payer OTHER ==
[2024-01-01 13:53] VITALS: BP 149/98; PULSE 70; RESP 20; TEMP 98.4; BMI 36.0
== END 2024-01-01 15:46 | disposition home or self-care (01) ==
LOC: FER 13:44
DX: M94.0 Chondrocostal junction syndrome [Tietze] (principal)
CPT/HCPCS: 71046-TC-FY; 93005; 99284-25